=== PATIENT | female | born 1980 | race African-American/Black ===

== ENCOUNTER 2025-07-25 08:09 | Emergency (ER) | payer OTHER, MEDICAID ==
[~2025-07-25] VITALS: Ht 180.3 cm; Wt 132.0 kg
[~2025-07-25 08:09] MED LIST: AMLO10TA80 PO; EMTR1TAB21 PO; ETRA25TA PO; HYDR-3927 PO; KEPP500 PO; NORV1 PO; TOPAMAX
[2025-07-25 08:11] VITALS: O2SAT 100
[2025-07-25] MEDS: ACETAMINOPHEN 325MG TABLET PO ONE (08:43)
[2025-07-25 08:47] LABS: BASOPHILS % 1.0 % (0.0-2.0); EOSINOPHILS % 2.7 % (0.0-5.0); HEMATOCRIT. 37.9 % (36.0-48.0); HEMOGLOBIN. 12.1 g/dL (12.0-16.0); LYMPHOCYTES % 29.8 % (20.0-50.0); MEAN PLATELET VOLUME 8.9 fl (7.4-10.4); MONOCYTES % 7.0 % (2.0-8.0); NEUTROPHILS % 59.5 % (40.0-76.0); PLATELET 243 x1000/uL (130-400); RED BLOOD CELL COUNT 4.46 mill/uL (4.2-5.4); RED CELL DISTRIBUTION WIDTH 14.5 % (11.6-14.6)
[2025-07-25 09:02] LABS: CREATININE 1.2 mg/dL (0.6-1.0); UREA NITROGEN BLOOD 10 mg/dL (9-23)
[2025-07-25 09:04] LABS: ASPARTATE AMINOTRANSFERASE 14 IU/L (<34); HCG SCREEN NEGATIVE
[2025-07-25] MEDS: ONDANSETRON HCL 4MG/2ML INJ IV ONE (09:04)
[2025-07-25 09:05] LABS: BILIRUBIN DIRECT 0.2 mg/dL (<=3.0); BILIRUBIN TOTAL 0.5 mg/dL (0.1-1.0); PROTEIN TOTAL 6.7 g/dL (6.0-8.3)
[2025-07-25] MEDS ORDERED: HUMAN-LANS PROTHROMBIN CPLX (PCC) 1000 UNITS VIAL IV ONE (09:30)
[2025-07-25] MEDS ORDERED: NICARDIPINE 50 MG in SODIUM CHLORIDE 0.9% 230 ML IV PRN ×2 (09:30→09:45)
[2025-07-25] MEDS ORDERED: DEXAMETHASONE 10 MG/ML VIAL IV ONE (09:30)
[2025-07-25] MEDS: HUMAN-LANS PROTHROMBIN CPLX (PCC) 1000 UNITS VIAL IV ONE (09:30)
[2025-07-25] MEDS ORDERED: NICARDIPINE 40MG/200ML PREMIX 250 ML IV PRN (09:45)
[2025-07-25] MEDS: LEVETIRACETAM 500MG PREMIX 100 ML IV ONE (09:53)
[2025-07-25] MEDS: NICARDIPINE 40MG/200ML PREMIX 200 ML IV PRN (10:17)
[2025-07-25] MEDS: HUMAN-LANS PROTHROMBIN CPLX (PCC) 500 UNITS VIAL IV NR (10:53)
[2025-07-25 11:24] VITALS: BP 164/85; PULSE 61; RESP 17; TEMP 36.2; O2SAT 96
[2025-07-25 13:15] LABS: INR 1.0
== END 2025-07-25 11:44 | disposition short-term general hospital (02) ==
LOC: ER 08:09 → CMPBEDREQ 11:58
DX: S06.6X9A Traumatic subarachnoid hemorrhage with loss of consciousness of unspecified duration, initial encounter (principal); I16.1 Hypertensive emergency; I10 Essential (primary) hypertension; Z79.624 Long term (current) use of inhibitors of nucleotide synthesis; Z79.899 Other long term (current) drug therapy; Z88.0 Allergy status to penicillin; Z88.1 Allergy status to other antibiotic agents
CPT/HCPCS: 80076; 80048; 84703; 85025; 85610; 36415; 70450; 93005; 96367; 96365; 96375; 99291; J1953; J1100; J3490; J2405; C9132; J7050